=== PATIENT | female | born 1980 | race Caucasian/White ===

== ENCOUNTER 2021-04-02 10:09 | Outpatient (CLI) | payer OTHER, SELFPAY ==
--- NOTE | ~2021-04-02 | MM_ITS ---
EXAMINATION: MM screening remedios BI w cami HISTORY: Screening mammogram, family history of breast cancer in her sister. TECHNIQUE: Craniocaudal and mediolateral oblique 3-D tomosynthesis images were obtained and synthetic 2-D images were generated. CAD analysis was submitted and interpreted. COMPARISON: No prior mammogram is available for comparison at this institution. BREAST PARENCHYMAL COMPOSITION: The breasts are heterogeneously dense, which may obscure small masses . FINDINGS: RIGHT BREAST: A mass is present in the posterior third of the outer breast 11 cm from the nipple. LEFT BREAST: A mass is present in the middle third of the lower inner breast 7.8 cm from the nipple. An asymmetry is present in the far posterior third of inner breast on the craniocaudal view. IMPRESSION: 1. Bilateral breast findings as described above. 2. Additional mammographic views and possible breast ultrasound are recommended. BI-RADS Category 0: Incomplete: Needs additional imaging evaluation. Reviewed, dictated and finalized at location A. IMPRESSION: 1. Bilateral breast findings as described above. 2. Additional mammographic views and possible breast ultrasound are recommended . BI-RADS Category 0: Incomplete: Needs additional imaging evaluation.
== END 2021-04-02 10:10 | disposition home or self-care (01) ==
PROVIDERS: PCP Family Medicine; Visit Provider Obstetrics & Gynecology
DX: Z12.31 Encounter for screening mammogram for malignant neoplasm of breast (principal); R92.8 Other abnormal and inconclusive findings on diagnostic imaging of breast
CPT/HCPCS: 77063; 77067

== ENCOUNTER 2021-04-27 13:27 | Outpatient (CLI) | payer OTHER, SELFPAY ==
--- NOTE | ~2021-04-27 | MMUS_ITS ---
EXAMINATION: MM diagnostic remedios BI w cami, US breast BI complete HISTORY: Follow-up breast asymmetries TECHNIQUE: Additional 3-D tomosynthesis images of the breasts were performed and synthetic 2-D images were generated. CAD analysis was submitted and interpreted. High resolution bilateral complete breas t ultrasound was performed. COMPARISON: 04/02/2021 BREAST PARENCHYMAL COMPOSITION: The breasts are heterogenously dense, which may obscure small masses. FINDINGS: MAMMOGRAPHIC FINDINGS: Right breast asymmetry in the upper outer quadrant is less dense with spot compression views, most li corey superimposed fibroglandular tissue. There is a mass in the lower inner quadrant of the left isis st which is circumscribed radiolucent centrally. ULTRASOUND: Right breast ultrasound: Normal heterogeneous echotexture without focal mass. Left breast ultrasound: At 5:00, 6 cm from the nipple, there is a 1.5 mm oval hypoechoic mass with mi xed posterior attenuation and no internal vascularity. Parallel orientation. IMPRESSION: 1. Probable benign left breast mass. 2. Recommend 6 month follow-up diagnostic left mammogram and ultrasound. BI-RADS category 3, probably benign findings. Reviewed, dictated and finalized at location A. IMPRESSION: 1. Probable benign left breast mass. 2. Recommend 6 month follow-up diagnostic left mammogram and ultrasound. BI-RADS category 3, probably benign findings.
== END 2021-04-27 13:28 | disposition home or self-care (01) ==
LOC: ANHIMG 13:29
PROVIDERS: PCP Family Medicine; Visit Provider Obstetrics & Gynecology
DX: R92.8 Other abnormal and inconclusive findings on diagnostic imaging of breast (principal)
CPT/HCPCS: 76641; 77062; 77066; G0279

== ENCOUNTER 2021-10-22 14:21 | Outpatient (CLI) | payer OTHER, SELFPAY ==
--- NOTE | ~2021-10-22 | MMUS_ITS ---
EXAMINATION: MM diagnostic remedios LT w cami, US breast LT complete HISTORY: Follow-up left breast mass TECHNIQUE: Additional 3-D tomosynthesis images of the left breast were performed and synthetic 2-D im ages were generated. CAD analysis was submitted and interpreted. High resolution Limited left breast ultrasound was performed. COMPARISON: 04/02/2021 BREAST PARENCHYMAL COMPOSITION: The breasts are heterogenously dense, which may obscure small masses FINDINGS: MAMMOGRAPHIC FINDINGS: Stable appearance to left breast mass in the lower inner quadrant of the left breast, middle third. T here are no suspicious calcifications or architectural distortion. ULTRASOUND: Limited left breast ultrasound: At 5:00, 6 cm from the nipple there is an oval hypoechoic mass with p arallel orientation, mixed posterior attenuation and no internal vascularity measuring 1.5 x 1.6 x 0. 8 cm compared with 1.5 x 1.4 x 0.7 cm on prior examination. IMPRESSION: 1. Slight interval enlargement of left breast mass allowing for differences of technique. 2. Ultrasound-guided left breast biopsy recommended. BI-RADS category 4, suspicious findings. Reviewed, dictated and finalized at location A. [employer] IMPRESSION: 1. Slight interval enlargement of left breast mass allowing for differences of technique. 2. Ultrasound-guided left breast biopsy recommended. BI-RADS category 4, suspicious findings.
== END 2021-10-22 14:22 | disposition home or self-care (01) ==
LOC: ANHIMG 14:23
PROVIDERS: PCP Family Medicine; Visit Provider Obstetrics & Gynecology
DX: N63.20 Unspecified lump in the left breast, unspecified quadrant (principal); R92.8 Other abnormal and inconclusive findings on diagnostic imaging of breast
CPT/HCPCS: 76641; 77061; 77065; G0279

== ENCOUNTER 2021-11-19 09:30 | Outpatient (CLI) | payer OTHER, SELFPAY ==
--- NOTE | ~2021-11-19 | MMUS_ITS ---
MM post biopsy invasive LT, US breast biopsy LT w image EXAMINATION: US GUIDED NEEDLE BIOPSY WITH VAC UUM ASSISTANCE DATE: 11/19/2021 11:37 CDT INDICATION: Left breast mass seen on recent examination. Ultrasound-guided core biopsy is requested to evaluate for malignancy. TECHNIQUE AND FINDINGS: The risks and potential benefits of the procedure were discussed with the patient, and written inform ed consent was obtained. After sterile preparation of the left breast, 1% lidocaine was utilized for local anesthesia. 1% lidocaine with epinephrine was used for deep anesthesia. A 10G vacuum-assisted biopsy gun needle was advanced through to the outer edge of the region of inter est from a inferior approach utilizing sonographic guidance. A total of 5 tissue core samples were o btained through the lesion. An Inrad tissue marker clip was then placed at the biopsy site. Hemostas is was achieved. The patient tolerated procedure well and there was no evidence of immediate complication. The patien t was given verbal instructions partly is from the department. Left breast mammograms to document ti ssue marker clip placement in the lower inner quadrant. The tissue samples were submitted to surgical pathology for histologic analysis. IMPRESSION: 1. Successful ultrasound-guided vacuum-assisted biopsy of left breast mass with tissue marker placem ent. Please refer to pathology report for histologic analysis. Reviewed, dictated and finalized at location A. IMPRESSION: 1. Successful ultrasound-guided vacuum-assisted biopsy of left breast mass wit h tissue marker placement. Please refer to pathology report for histologic anal ysis.
== END 2021-11-19 09:31 | disposition home or self-care (01) ==
PROVIDERS: PCP Family Medicine; Visit Provider Surgery
DX: D24.2 Benign neoplasm of left breast (principal)
CPT/HCPCS: 19083; 88305; A4648

== ENCOUNTER 2022-12-19 22:11 | Emergency (ER) | payer OTHER, SELFPAY ==
[2022-12-19 22:21] VITALS: BP 134/84; PULSE 67; RESP 16; TEMP 36.6; O2SAT 99
--- NOTE | 2022-12-19 23:58 | ED.DENTAL ---
HPI - Dental/Oral General Chief complaint: Dental/Oral Stated complaint: toothache Time Seen by Provider: 12/19/22 23:11 Source: patient Mode of arrival: ambulatory Limitations: no limitations History of Present Illness HPI Narrative: Patient is a 42-year-old female who presents ED with report of left lower molar dental pain, tooth #17. Patient reports having intermittent pain for the last 5 days. She states today, she noticed swelling and a bump to the inner gumline along that tooth. She states the pain became more severe today, which prompted her presentation. She also reported having a sore throat and pain with swallowing. Upon arriving to the ED while in triage, patient reports that the bump burst. She noted fluid from the bump/abscess and had a foul taste in her mouth. Pain is significantly better now. Patient reports she last saw her dentist 1 month ago at which time everything was normal. She denies any recent dental procedures. Denies any fever, nausea, vomiting, trouble breathing. Teeth map: 1. pain Related Data Allergies Allergy/AdvReac Type Severity Reaction Status Date / Time amoxicillin AdvReac Unknown unknown Verified 12/19/22 23:01 Review of Systems Review of Systems: CONSTITUTIONAL: Denies fever, chills, or sweats. ENT: See HPI. CARDIOVASCULAR: Denies chest pain. RESPIRATORY: Denies cough or dyspnea. GASTROINTESTINAL: Denies nausea, vomiting. All systems reviewed & are unremarkable except as noted in HPI and below PMFSH Past Medical History Medical History Anxiety Hyperthyroidism Old complete tear of anterior cruciate ligament of right knee Surgical History Surgical History H/O bilateral breast reduction surgery ~ 1994 H/O knee surgery History of surgery on arm Family History Family History Mother Diabetes mellitus Father Hypertension Family history of elevated blood lipids Sibling Family history of malignant neoplasm of breast in first degree relative Social History Social History Smoking status: Former smoker Tobacco type: cigarettes Second hand tobacco smoke exposure: Yes Alcohol intake: current Substance use: never Substance use type: does not use Living arrangements: with family Occupation/Education: occupation Additional occupation/education comments: Professor Gender identity (if verbalized by the patient): Female Exam Narrative: GENERAL: Well appearing, well-nourished, non-toxic, in no acute distress. HEAD: Normocephalic, atraumatic. ENT: Mucous membranes moist. No mucosal lesions. Mild posterior pharynx erythema. No tonsillar hypertrophy or exudate. Tenderness to palpation along left lower inner gumline, particularly around tooth #17, left lower posterior molar. Mild erythema noted along inner gumline. Minimal fluctuance palpated, though no focal abscess or swelling. NECK: Supple. No adenopathy, no masses. RESPIRATORY: Airway patent, respirations nonlabored. Clear to auscultation bilaterally, no rales, rhonchi, wheezing. CARDIOVASCULAR: Regular rate and rhythm without murmurs, rubs, or gallops. Radial pulses 2+ and equal bilaterally. MUSCULOSKELETAL: Moves all extremities. Strength/ROM intact without gross deformities. SKIN: Warm, dry, normal color. No rashes. NEURO: A&O X3. Speech clear. Cranial nerves II-XII grossly intact. Steady gait. No ataxic movements. PSYCHIATRIC: Appropriate mood and affect. Normal interaction. Course Vital Signs Vital signs: Vital Signs Temperature 98 F 12/19/22 22:21 Pulse Rate 67 12/19/22 22:21 Respiratory Rate 16 12/19/22 22:21 Blood Pressure 134/84 12/19/22 22:21 Pulse Oximetry 99 12/19/22 22:21 Oxygen Delivery Room Air 12/19/22 22:21
[2022-12-20] MEDS: CLINDAMYCIN HCL 150 MG CAP 450 MG PO (00:42)
== END 2022-12-20 01:00 | disposition home or self-care (01) ==
PROVIDERS: Emergency Provider Physician Assistant; PCP Family Medicine
DX: K04.7 Periapical abscess without sinus (principal); E05.90 Thyrotoxicosis, unspecified without thyrotoxic crisis or storm; Z87.891 Personal history of nicotine dependence
CPT/HCPCS: 99283; A9270

== ENCOUNTER 2023-01-04 09:15 | Outpatient (CLI) | payer OTHER, SELFPAY ==
--- NOTE | ~2023-01-04 | MM_ITS ---
EXAMINATION: MM screening remedios BI w cami HISTORY: Screening mammogram, family history of breast cancer in her sister. TECHNIQUE: Craniocaudal and mediolateral oblique 3-D tomosynthesis images were obtained and synthetic 2-D images were generated. CAD analysis was submitted and interpreted. COMPARISON: 10/22/2021, 04/27/2021, 04/02/2021 BREAST PARENCHYMAL COMPOSITION: The breasts are heterogeneously dense, which may obscure small masses . FINDINGS: There is a left breast mass with biopsy change. No suspicious mass, calcification, or archi tectural distortion are identified in either breast to suggest malignancy. There has been no suspicio us interval change. IMPRESSION: 1. No mammographic evidence of malignancy. 2. Recommend routine screening mammography in one year. BI-RADS Category 2: Benign finding(s). Reviewed, dictated and finalized at location A.
== END 2023-01-04 09:16 | disposition home or self-care (01) ==
LOC: ANHIMG 09:16
PROVIDERS: PCP Family Medicine; Visit Provider Obstetrics & Gynecology Gynecology
DX: Z12.31 Encounter for screening mammogram for malignant neoplasm of breast (principal)
CPT/HCPCS: 77063; 77067